=== PATIENT | female | born 1990 | race Caucasian/White ===

== ENCOUNTER 2024-03-13 05:50 | Inpatient (IN) | payer OTHER ==
[2024-03-13] MEDS: ELECTROLYTE-148 SOLN 500 ML IV ONE ×2 (06:10→13:52)
[2024-03-13] MEDS: ELECTROLYTE-148 SOLN 1,000 ML IV SCH ×2 (06:45→13:52)
[2024-03-13 06:49] VITALS: BMI 35.9
[2024-03-13] MEDS: CITRIC ACID/SODIUM CITRATE 30 ML UNIT-DOSE CUP PO ONE ×2 (07:23→11:28)
[2024-03-13] MEDS ORDERED: morphine SULFATE/PF 1 MG/2 ML (2cc Syringe - QUVA) ONE (07:50)
[2024-03-13] MEDS ORDERED: FENTANYL CITRATE/PF 50 MCG/ML VIAL ONE (07:50)
[2024-03-13] MEDS ORDERED: ceFAZolin SODIUM 1 GM VIAL ONE (08:41)
[2024-03-13] MEDS ORDERED: DEXAMETHASONE SOD PHOSPHATE 4 MG/1 ML VIAL ONE (09:15)
[2024-03-13] MEDS ORDERED: ONDANSETRON 4 MG/2 ML VIAL ONE (09:15)
[2024-03-13] MEDS ORDERED: OXYTOCIN 20 UNITS in 0.9% NS 20 UNIT/1,000 ML INFUS.BAG IV ONE (09:49)
[2024-03-13] MEDS ORDERED: ONDANSETRON 4 MG/2 ML VIAL IVPUSH PRN (10:07)
[2024-03-13] MEDS ORDERED: IBUPROFEN 600 MG TABLET (FP) PO PRN (10:07)
[2024-03-13] MEDS ORDERED: ACETAMINOPHEN 325 MG TABLET (FP) PO PRN (10:07)
[2024-03-13] MEDS ORDERED: METHYLERGONOVINE MALEATE 0.2 MG/1 ML AMP IM PRN (10:18)
[2024-03-13] MEDS: OXYTOCIN 20 UNITS in 0.9% NS 20 UNIT/1,000 ML INFUS.BAG IV SCH (10:59)
[2024-03-13] MEDS: ACETAMINOPHEN 1000 MG/100 ML BAG IVPB PRN (12:00)
[2024-03-13] MEDS: METHYLERGONOVINE MALEATE 0.2 MG/1 ML AMP IM SCH (13:48)
[2024-03-13] MEDS: IBUPROFEN 800 MG/8 ML IJ IVPB PRN (16:58)
[2024-03-13] MEDS ORDERED: oxyCODONE HCL 5 MG TABLET PO PRN (22:18)
[2024-03-14 07:53] LABS: BASO % 0.3 % (0-2.0); EOS % 0.7 % (0-4.5); HEMATOCRIT 29.6 % (32.4-45.2); HEMOGLOBIN 9.9 GM/dL (10.7-15.3); LYMPH % 20.6 % (8-40); MCHC 33.4 g/dl (32.0-36.0); MEAN CELL VOLUME 92.7 fl (80-96); MEAN PLT VOLUME 8.3 fl (7.5-11.1); NEUT % 70.4 % (42.8-82.8); PLATELET COUNT 206 10^3/uL (134-434); RBC 3.19 M/mm3 (3.60-5.2); RDW 13.8 % (11.6-15.6); WHITE BLOOD COUNT 13.3 K/mm3 (4.0-10.0)
[2024-03-14] MEDS: SIMETHICONE 80 MG TAB.CHEW (FP) PO PRN (09:15)
[2024-03-14] MEDS: IBUPROFEN 600 MG TABLET (FP) PO PRN (09:15)
[2024-03-14] MEDS: PRENATAL VITAMINS W/ FOLIC ACID TABLET (FP) PO SCH (09:15)
[2024-03-14] MEDS: FERROUS SO4 325 MG TABLET (FP) PO SCH (09:15)
[2024-03-14] MEDS ORDERED: BISACODYL 10 MG SUPP.RECT RC PRN (10:18)
[2024-03-14] MEDS: ACETAMINOPHEN 325 MG TABLET (FP) PO PRN (11:40)
[2024-03-14] MEDS: oxyCODONE HCL 5 MG TABLET PO PRN (16:03)
[2024-03-14] MEDS: SENNOSIDES/DOCUSATE COMBO (SENNA PLUS) TABLET (UD) PO PRN (20:28)
[2024-03-15 08:22] VITALS: RESP 18
[2024-03-16 09:29] VITALS: BP 143/86; PULSE 87; TEMP 98.3
== END 2024-03-16 14:35 | disposition home or self-care (01) | DRG 540 ==
LOC: JLDR 05:50 → J3W 12:10 → J3CN 19:04 → J3W 19:15
PROVIDERS: ADMIT Obstetrics & Gynecology; ATTEND Obstetrics & Gynecology
PROC: 10D00Z1 Extraction of Products of Conception, Low, Open Approach (ICD-10-PCS; principal; 2024-03-13)
DX: O36.63X0 Maternal care for excessive fetal growth, third trimester, not applicable or unspecified (principal); O32.1XX0 Maternal care for breech presentation, not applicable or unspecified; Z3A.39 39 weeks gestation of pregnancy; Z37.0 Single live birth
CPT/HCPCS: 36415; 80053; 85025; 85610; 85730; 86780; 86850; 86900; 86901; 87389; 88307-TC; J0131